=== PATIENT | male | born 1985 | race African-American/Black ===

== ENCOUNTER 2018-08-04 12:44 | Emergency (ER) | payer MEDICAID ==
[~2018-08-04] VITALS: Ht 190.5 cm; Wt 137.4 kg
[2018-08-04 12:51] VITALS: BP_SYST 121
[2018-08-04] MEDS ORDERED: KETOROLAC TROMETHAMINE 60 MG/2 ML VIAL IM ONE (13:15)
[2018-08-04] MEDS ORDERED: HYDROcodone/ACETAMIN 7.5-325 MG TAB PO ONE (13:45)
[2018-08-04 15:30] VITALS: BP_SYST 120
== END 2018-08-04 15:30 | disposition home or self-care (01) ==
LOC: SED 12:44
DX: S20.212A Contusion of left front wall of thorax, initial encounter (principal); R03.0 Elevated blood-pressure reading, without diagnosis of hypertension; W50.0XXA Accidental hit or strike by another person, initial encounter; Y93.75 Activity, martial arts; Y92.89 Other specified places as the place of occurrence of the external cause; Y99.8 Other external cause status
CPT/HCPCS: 71046; 71100; 96372; 99283; J1885